=== PATIENT | female | born 1960 | race Caucasian/White ===

== ENCOUNTER 2017-11-10 21:06 | Inpatient (IN) | payer MEDICAID ==
[~2017-11-10] VITALS: Ht 160 cm; Wt 85.7 kg
[2017-11-10 21:57] LABS: BASOPHIL % 0.6 % (0-2); PLATELET COUNT 233 x10^3mcL (130-400); RED CELL DISTRIBUTION WIDTH 13.6 % (11.5-14.5)
[2017-11-10 22:00] LABS: CALCIUM 8.7 mg/dL (8.5-10.1); CARBON DIOXIDE 27.9 mmol/L (21-32); CHLORIDE SERUM 102 mmol/L (98-107); CREATININE SERUM 0.9 mg/dL (0.6-1.0); GFR1 > 60 mL/min; GLUCOSE SERUM 148 mg/dL (74-106); POTASSIUM SERUM 3.6 mmol/L (3.5-5.1); SODIUM SERUM 138 mmol/L (136-145)
[2017-11-10 22:04] LABS: ALBUMIN 3.4 g/dL (3.4-5.0); ALKALINE PHOSPHATASE 115 U/L (46-116); ALT/SGPT 35 U/L (14-59); AST/SGOT 23 U/L (15-37); BILIRUBIN TOTAL 0.27 mg/dL (0.20-1.00); TOTAL PROTEIN, SERUM 7.4 g/dL (6.4-8.2)
[2017-11-10 22:51] LABS: microscopic required? YES; urine erythrocyte NEGATIVE (NEGATIVE)
[2017-11-10 23:08] LABS: AMPHETAMINE QUAL UR NONE DETECTED (NEG <=1000)
[2017-11-10 23:31] LABS: FREE T4 0.8 ng/dL (0.76-1.46)
[2017-11-11] MEDS ORDERED: GEMFIBROZIL600 MG PO (00:13)
[2017-11-11] MEDS ORDERED: METFORMIN500 M1 PO (00:13)
[2017-11-11] MEDS ORDERED: AMITRIPTYLINE H50 MG PO (00:14)
[2017-11-11] MEDS ORDERED: TRAMADOL HCL50 MG PO (00:14)
[2017-11-11 02:06] VITALS: BP 130/68
[2017-11-11] MEDS ORDERED: ADULT LOW DOSE81 MG PO (03:25)
[2017-11-11] MEDS ORDERED: NITROSTAT0.4 MG SL (03:31)
[2017-11-11] MEDS ORDERED: LOSARTAN POTASS1 TA6 PO (03:31)
[2017-11-11 05:35] VITALS: BP 125/64
[2017-11-11 07:20] LABS: BASOPHIL % 0.5 % (0-2); PLATELET COUNT 199 x10^3mcL (130-400); RED CELL DISTRIBUTION WIDTH 13.8 % (11.5-14.5)
[2017-11-11 07:44] LABS: AMYLASE 62 U/L (25-115); LIPASE 343 IU/L (73-393); PHOSPHOROUS 3.7 mg/dL (2.5-4.9)
[2017-11-11 07:46] LABS: CHOLESTEROL 299 mg/dL (<200); HDL CHOLESTEROL 30 mg/dL (40-60); TRIGLYCERIDES 739 mg/dL (<150)
[2017-11-11 08:02] LABS: FREE T4 0.69 ng/dL (0.76-1.46); FREE THYROXINE INDEX 1.6 ug/dL (1.4-4.5); T4(THYROXINE) 5.1 ug/dL (4.7-13.3)
[2017-11-11 08:29] LABS: T3 TOTAL 0.84 ng/mL
[2017-11-11 08:44] VITALS: BP 120/62
[2017-11-11 13:12] VITALS: BP 104/50
[2017-11-11 16:19] VITALS: BP 113/61
[2017-11-11 22:35] VITALS: BP 120/68
[2017-11-12 06:35] VITALS: BP 101/55
[2017-11-12 07:55] LABS: CALCIUM 8.6 mg/dL (8.5-10.1); CARBON DIOXIDE 28.6 mmol/L (21-32); CHLORIDE SERUM 106 mmol/L (98-107); CREATININE SERUM 0.9 mg/dL (0.6-1.0); GFR1 > 60 mL/min; GLUCOSE SERUM 116 mg/dL (74-106); MAGNESIUM 1.9 mg/dL (1.8-2.4); PHOSPHOROUS 2.8 mg/dL (2.5-4.9); POTASSIUM SERUM 4.2 mmol/L (3.5-5.1); SODIUM SERUM 141 mmol/L (136-145)
[2017-11-12 08:20] VITALS: BP 119/64
[2017-11-12] MEDS ORDERED: LIPI10 PO (08:56)
[2017-11-12] MEDS ORDERED: LEVAQUIN750 MG PO (08:57)
[2017-11-12] MEDS ORDERED: LAC PO (08:58)
[2017-11-12 12:50] VITALS: BP 113/60
[2017-11-12 18:07] VITALS: BP 121/62
[2017-11-12 22:12] VITALS: BP 110/60
[2017-11-12 22:15] VITALS: BP 104/53
[2017-11-13 05:32] VITALS: BP 115/59
[2017-11-13 07:11] LABS: BASOPHIL % 0.4 % (0-2); PLATELET COUNT 194 x10^3mcL (130-400); RED CELL DISTRIBUTION WIDTH 13.8 % (11.5-14.5)
[2017-11-13 07:14] LABS: CALCIUM 8.9 mg/dL (8.5-10.1); CARBON DIOXIDE 27.1 mmol/L (21-32); CHLORIDE SERUM 107 mmol/L (98-107); CREATININE SERUM 0.8 mg/dL (0.6-1.0); GFR1 > 60 mL/min; GLUCOSE SERUM 104 mg/dL (74-106); PHOSPHOROUS 2.7 mg/dL (2.5-4.9); POTASSIUM SERUM 4.2 mmol/L (3.5-5.1); SODIUM SERUM 140 mmol/L (136-145)
[2017-11-13 09:47] VITALS: BP 137/64
[2017-11-13] MEDS ORDERED: LEXAPRO5 M1 PO (10:47)
[2017-11-13] MEDS ORDERED: LACTULOSE10 GM/152 PO (10:53)
[2017-11-13] MEDS ORDERED: LEVAQUIN750 MG PO ×2 (12:39)
[2017-11-13 12:48] VITALS: BP 136/69
[2017-11-13 13:03] VITALS: BP 137/64
== END 2017-11-13 13:47 | disposition home or self-care (01) | DRG 279 ==
LOC: ED 21:06 → DU 11-11 00:33
PROVIDERS: Emergency Medicine; Family Medicine; Student in an Organized Health Care Education/Training Program
DX: K72.90 Hepatic failure, unspecified without coma (principal); G93.41 Metabolic encephalopathy; I43 Cardiomyopathy in diseases classified elsewhere; I11.9 Hypertensive heart disease without heart failure; N39.0 Urinary tract infection, site not specified; F43.23 Adjustment disorder with mixed anxiety and depressed mood; R07.89 Other chest pain; R73.03 Prediabetes; K76.0 Fatty (change of) liver, not elsewhere classified; M19.90 Unspecified osteoarthritis, unspecified site; E78.5 Hyperlipidemia, unspecified; Z68.33 Body mass index [BMI] 33.0-33.9, adult; Z79.82 Long term (current) use of aspirin; Z79.84 Long term (current) use of oral hypoglycemic drugs
CPT/HCPCS: 36600; 83880; 84439; 87804; 97110-GP; 97116-GP; 97530-GP; J1956; J2405; J7030; Q0092

== ENCOUNTER 2019-06-05 23:07 | Emergency (ER) | payer SELFPAY ==
[~2019-06-05] VITALS: Ht 160 cm; Wt 87.5 kg
[~2019-06-05 23:07] MED LIST: ADULT LOW DOSE81 MG PO; AMITRIPTYLINE H50 MG PO; GEMFIBROZIL600 MG PO; LAC PO; LACTULOSE10 GM/152 PO; LEVAQUIN750 MG PO; LEXAPRO5 M1 PO; LIPI10 PO; LOSARTAN POTASS1 TA6 PO; METFORMIN500 M1 PO; NITROSTAT0.4 MG SL; TRAMADOL HCL50 MG PO
[2019-06-05 23:11] VITALS: Ht 160 cm; Wt 87.5 kg
[2019-06-05 23:46] LABS: BASOPHIL % 0.5 % (0-2); PLATELET COUNT 204 x10^3mcL (130-400); RED CELL DISTRIBUTION WIDTH 13.7 % (11.5-14.5)
[2019-06-05 23:57] LABS: CALCIUM 9.7 mg/dL (8.5-10.1); CARBON DIOXIDE 28.2 mmol/L (21-32); CREATININE SERUM 1.1 mg/dL (0.6-1.0); POTASSIUM SERUM 3.7 mmol/L (3.5-5.1)
[2019-06-06 00:05] LABS: ALBUMIN 3.6 g/dL (3.4-5.0); BILIRUBIN TOTAL 0.4 mg/dL (0.20-1.00); TOTAL PROTEIN, SERUM 7.7 g/dL (6.4-8.2)
[2019-06-06 01:43] VITALS: BP 128/80
== END 2019-06-06 01:42 | disposition home or self-care (01) ==
LOC: ED 23:07
PROVIDERS: Emergency Medicine
DX: N39.0 Urinary tract infection, site not specified (principal); I10 Essential (primary) hypertension; M19.90 Unspecified osteoarthritis, unspecified site
CPT/HCPCS: 36415; J1885